=== PATIENT | male | born 1955 | race Caucasian/White ===

== ENCOUNTER 2016-11-02 21:21 | Observation (INO) | payer BC, MEDICARE ==
[~2016-11-02] VITALS: Ht 180.3 cm; Wt 181.4 kg
[2016-11-02 21:31] VITALS: BP 142/73; PULSE 101; RESP 18; TEMP 97.8; O2SAT 93
[2016-11-02 21:52] VITALS: BP 142/73; PULSE 101; RESP 18; TEMP 97.8; O2SAT 93
[2016-11-02] MEDS ORDERED: KETOROLAC TROMETHAMINE 30 MG/ML (IVP) VIAL IV PUSH ONE (22:30)
[2016-11-02] MEDS ORDERED: SODIUM CHLORIDE 0.9% FLUSH 10 ML FLUSH IVF PRN (22:30)
[2016-11-02] MEDS ORDERED: SODIUM CHLORID 0.9% 500 ML INJ 500 ML IV ONE (22:30)
[2016-11-02] MEDS ORDERED: HYDROmorphone HCL PF 1 MG/ML VIAL IV PUSH ONE (22:30)
[2016-11-02] MEDS ORDERED: ONDANSETRON HCL 4 MG/2 ML VIAL IV PUSH ONE (22:30)
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
[2016-11-02 22:38] LABS: BLOOD, URINE SMALL (NEG); GLUCOSE,URINE NEG (NEG); KETONE, URINE TRACE mg/dL (NEG); NITRITE,URINE NEG (NEG); PH, URINE 5.5 (5.0-8.5)
[2016-11-02 22:39] LABS: AUTOMATED NEUTROPHIL # 5.4 TH/MM3 (1.8-7.7); BASOPHIL # 0.3 TH/MM3 (0-0.2); BASOPHIL % 3.5 % (0.0-2.0); EOSINOPHIL # 0.1 TH/MM3 (0-0.4); EOSINOPHIL % 1.2 % (0.0-4.0); HEMATOCRIT 49.3 % (39.0-51.0); HEMO FLAGS DIFF FINAL; LYMPH % 18.6 % (9.0-44.0); LYMPHOCYTE # 1.5 TH/MM3 (1.0-4.8); MEAN CELL VOLUME 85.4 FL (80.0-100.0); MEAN CORPUSCULAR HEMOGLOBIN 28.3 PG (27.0-34.0); MEAN CORPUSCULAR HGB CONC 33.2 % (32.0-36.0); MONO % 7.2 % (0.0-8.0); NEUT % 69.5 % (16.0-70.0); PLATELET COUNT 175 TH/MM3 (150-450); RED BLOOD COUNT 5.78 MIL/MM3 (4.50-5.90); RED CELL DISTRIBUTION WIDTH 14.9 % (11.6-17.2); WHITE BLOOD COUNT 7.9 TH/MM3 (4.0-11.0)
[2016-11-02 22:43] LABS: URINE COLOR YELLOW (YELLW/STRAW)
[2016-11-02 22:44] LABS: COMMENT (UR) CULT NOT INDICATED; CULTURE IF INDICATED CULT NOT INDICATED; RBC, URINE 0-3 /hpf (0-3); SQUAMOUS EPITHELIAL CELL URINE 0-5 /hpf (0-5); WBC, URINE 0-2 /hpf (0-5)
[2016-11-02 22:46] LABS: CHLORIDE 96 MEQ/L (98-107); SODIUM (NA) 130 MEQ/L (136-145)
[2016-11-02 22:50] LABS: ANION GAP 10 MEQ/L (5-15); BICARBONATE 24.1 MEQ/L (21.0-32.0); BLOOD UREA NITROGEN 20 MG/DL (7-18)
[2016-11-02 22:53] LABS: ALT (GPT) 68 U/L (12-78); AST (GOT) 36 U/L (15-37); GLOMERULAR FILTRATION RATE 56 ML/MIN (>89)
[2016-11-02 22:54] LABS: TOTAL BILIRUBIN ADULT 0.6 MG/DL (0.2-1.0)
[2016-11-02 23:02] LABS: POTASSIUM 5.2 MEQ/L (3.5-5.1)
[2016-11-02 23:11] VITALS: RESP 18; O2SAT 94
[2016-11-02 23:18] LABS: ALKALINE PHOSPHATASE 71 U/L (45-117)
[2016-11-02] MEDS ORDERED: ASPI-110 PO (23:22)
[2016-11-02] MEDS ORDERED: ATOR20TA15 PO (23:22)
[2016-11-02] MEDS ORDERED: IPRASOL INH (23:22)
[2016-11-02] MEDS ORDERED: TEST-55 (23:22)
[2016-11-02] MEDS ORDERED: LOSA50TA PO (23:22)
[2016-11-02] MEDS ORDERED: MAGN400T24 (23:22)
[2016-11-02] MEDS ORDERED: ALBU6.7H INH (23:22)
[2016-11-02] MEDS ORDERED: MONT10TA4 PO (23:22)
[2016-11-02] MEDS ORDERED: HUMALOG SQ (23:22)
[2016-11-02] MEDS ORDERED: ALBI1INJ2 SQ (23:22)
[2016-11-02] MEDS ORDERED: OMEG300C5 (23:22)
[2016-11-02] MEDS ORDERED: EFFE150C PO (23:22)
[2016-11-02] MEDS ORDERED: FLUT1INH7 INH (23:22)
[2016-11-02] MEDS ORDERED: ALBU1.25 NEB (23:22)
[2016-11-02] MEDS ORDERED: AMLO5TAB2 PO (23:22)
[2016-11-02] MEDS ORDERED: INSULIN HUMAN REGULAR 1,000 UNITS/10 ML VIAL IV PUSH ONE (23:30)
[2016-11-02] MEDS ORDERED: SODIUM CHLOR 0.9% 1000 ML INJ 1,000 ML IV ONE (23:30)
--- NOTE | 2016-11-02 23:48 | RADRPT ---
EXAM DATE/TIME: 11/02/2016 23:19 [place] COMPARISON: No previous studies available for comparison. INDICATIONS : Lower back pain post fall. Numbness in left leg. RADIATION DOSE: 43.27 CTDIvol (mGy) ; Patient body habitus MEDICAL HISTORY : None SURGICAL HISTORY : None. ENCOUNTER: Initial ACUITY: 1 day PAIN SCALE: 10/10 LOCATION: Bilateral lower back TECHNIQUE: Volumetric scanning of the lumbar spine was performed. Multiplanar reconstructions in the sagittal, coronal and oblique axial planes were performed. Using automated exposure control and adjustment of the mA and/or kV according to patient size, radiation dose was kept as low as reasonably achievable t o obtain optimal diagnostic quality images. DICOM format image data is available electronically for review and comparison. FINDINGS: There is bilateral L5 spondylolysis with grade 1 anterolisthesis of L5 on S1 and severe degenerative disc disease at L5-S1 with prominent osteophytosis, vacuum disc phenomenon and disc space narrowing, endplate sclerosis. Moderate facet hypertrophic changes at L5-S1. There are mild multilevel osteophyt es present. There are no compression deformities. The pedicles appear short diffusely on a congenital basis. At L3-4 diffuse disc bulge is noted greatest centrally with mild canal stenosis and moderate facet hy pertrophy identified. There is felt to be severe bilateral foraminal stenosis. At L4-5-1 diffuse disc bulge greatest centrally with mild facet hypertrophy. Severe bilateral foraminal narrowing. CONCLUSION: 1. Degenerative changes without acute fracture. 2. L5 spondylolysis with spondylolisthesis. Martin Brasher MD on November 02, 2016 at 23:44 Board Certified Radiologist. This report was verified electronically.
[2016-11-03] VITALS (11 sets, daily range): BP systolic 135–195; BP diastolic 69–95; PULSE 64–104; RESP 18–20; TEMP 97.5–98.6; O2SAT 91–97
[2016-11-03] MEDS ORDERED: HYDROmorphone HCL PF 1 MG/ML VIAL IV PUSH ONE ×2 (00:30→05:00)
[2016-11-03] MEDS ORDERED: HYDROmorphone HCL PF 1 MG/ML VIAL IV PUSH PRN ×2 (00:45→08:45)
[2016-11-03] MEDS ORDERED: NALOXONE HCL 0.4 MG/ML AMP IV PRN (00:45)
[2016-11-03] MEDS ORDERED: SODIUM CHLORIDE 0.9% FLUSH 10 ML FLUSH IV FLUSH PRN (00:45)
[2016-11-03] MEDS ORDERED: DEXTROSE 50% IN WATER 50 ML VIAL(D50) IV PRN (01:00)
[2016-11-03] MEDS ORDERED: SODIUM CHLORIDE 0.9% FLUSH 10 ML FLUSH IVF PRN (01:00)
[2016-11-03] MEDS ORDERED: GLUCAGON 1 MG/ML VIAL OTHER PRN (01:00)
[2016-11-03] MEDS ORDERED: INSULIN HUMAN REGULAR 1,000 UNITS/10 ML VIAL IV PUSH ONE (02:00)
[2016-11-03] MEDS ORDERED: SODIUM CHLORID 0.9% 500 ML INJ 500 ML IV ONE (02:00)
[2016-11-03] MEDS ORDERED: ORPHENADRINE INJ 60 MG/2 ML AMP IM ONE (02:30)
[2016-11-03] MEDS ORDERED: HYDROmorphone HCL PF 2 MG/ML VIAL IV PUSH ONE (03:15)
[2016-11-03] MEDS ORDERED: DEXAMETHASONE SOD PHOS 4 MG/ML VIAL IV PUSH ONE (04:15)
[2016-11-03] MEDS ORDERED: RESP: ALBUTEROL 2.5 MG/IPRATROPIUM 0.5 MG NEB (PRN) NEB (05:15)
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
[2016-11-03] MEDS ORDERED: MEPERIDINE HCL 50 MG TAB PO PRN (06:45)
[2016-11-03] MEDS ORDERED: MEPERIDINE HCL 50 MG TAB PO ONE (06:45)
[2016-11-03] MEDS ORDERED: INSULIN ASPART SUPPLEMENTAL SCALE SQ SCH (07:00)
--- NOTE | 2016-11-03 07:49 | RADRPT ---
EXAM DATE/TIME: 11/03/2016 07:12 [facility] COMPARISON: No previous studies available for comparison. INDICATIONS : Trauma. MEDICAL HISTORY : Diabetes mellitus type 2. Hypertension. SURGICAL HISTORY : Cholecystectomy. Total knee replacement, right. Total knee replacement, left. Bilateral rotator cuff. ENCOUNTER: Initial ACUITY: 1 day PAIN SCORE: 4/10 LOCATION: back TECHNIQUE: Multiplanar multisequence MRI of the thoracic spine was performed. FINDINGS: VERTEBRA: Normal vertebral body height. Homogeneous marrow signal. ALIGNMENT: Normal. CORD: Normal position and configuration. T1-T2: Normal. T2-T3: The thecal sac has a normal diameter. No evidence of disc bulge or protrusion. T3-T4: The thecal sac has a normal diameter. No evidence of disc bulge or protrusion. T4-T5: The thecal sac has a normal diameter. No evidence of disc bulge or protrusion. T5-T6: The thecal sac has a normal diameter. No evidence of disc bulge or protrusion. T6-T7: The thecal sac has a normal diameter. No evidence of disc bulge or protrusion. T7-T8: The thecal sac has a normal diameter. No evidence of disc bulge or protrusion. T8-T9: The thecal sac has a normal diameter. No evidence of disc bulge or protrusion. Mild anterior margina l spurring T9-T10: The thecal sac has a normal diameter. No evidence of disc bulge or protrusion. T10-T11: The thecal sac has a normal diameter. No evidence of disc bulge or protrusion. T11-T12: The thecal sac has a normal diameter. No evidence of disc bulge or protrusion. T12-L1: The thecal sac has a normal diameter. No evidence of disc bulge or protrusion. CONCLUSION: No acute disease. No acute bony injury. Minimal anterior marginal spurring Gaurav Perez MD on November 03, 2016 at 7:45 Board Certified Radiologist. This report was verified electronically.
[2016-11-03] MEDS: RESP: ALBUTEROL 2.5 MG/IPRATROPIUM 0.5 MG NEB (SCH) NEB ×3 (08:18→19:21)
--- NOTE | 2016-11-03 08:26 | RADRPT ---
EXAM DATE/TIME: 11/03/2016 07:36 [facility] COMPARISON: No previous studies available for comparison. INDICATIONS : Trauma. MEDICAL HISTORY : Diabetes mellitus type 2. Hypertension. SURGICAL HISTORY : Cholecystectomy. Total knee replacement, right. Rotator cuff, left. Bilateral rotator cuff. ENCOUNTER: Initial ACUITY: 2 day PAIN SCORE: 6/10 LOCATION: low back TECHNIQUE: Multiplanar multisequence MRI of the lumbar spine was performed without contrast. FINDINGS: The most caudal appearing lumbar vertebra is numbered as L5. VERTEBRAE: A grade 1 anterolisthesis is noted at L5-S1. Bilateral L5 pars defects are noted. Lumbar alignment is otherwise well preserved. Bone marrow signal intensity is well preserved without evidence of bone ma rrow edema. There are no destructive changes. CONUS: Normal level and configuration. T12-L1: The thecal sac has a normal diameter. No evidence of disc bulge or protrusion. The neural foramina are patent bilaterally. L1-L2: The thecal sac has a normal diameter. No evidence of disc bulge or protrusion. The neural foramina are patent bilaterally. L2-L3: The thecal sac has a normal diameter. No evidence of disc bulge or protrusion. The neural foramina are patent bilaterally. L3-L4: The thecal sac has a normal diameter. No evidence of disc bulge or protrusion. The neural foramina are patent bilaterally. L4-L5: The thecal sac has a normal diameter. No evidence of disc bulge or protrusion. The neural foramina are patent bilaterally. L5-S1: Moderate degenerative disc disease with disc space narrowing is noted. There is broad-based posterior annular bulging with moderate bilateral foraminal encroachment. The L5 nerve roots are mildly compre ssed bilaterally. Significant anterior disc protrusion is identified. There is no evidence of spinal stenosis. CONCLUSION: 1. Grade 1 anterolisthesis at L5-S1 secondary to bilateral spondylolysis 2. Moderate degenerative disc disease at L5-S1 with posterior and posterolateral disc bulging 3. Moderate bilateral foraminal encroachment with nerve root compression at L5-S1 secondary to degene rative disc disease and spondylolisthesis. 4. No evidence of acute trauma. Shawn Veloz MD on November 03, 2016 at 8:18 Board Certified Radiologist. This report was verified electronically.
[2016-11-03] MEDS ORDERED: SODIUM CHLORIDE 0.9% FLUSH 10 ML FLUSH IV FLUSH SCH (09:00)
[2016-11-03] MEDS: INSULIN ASPART SUPPLEMENTAL SCALE SQ SCH ×4 (09:31→21:40)
[2016-11-03] MEDS: SODIUM CHLORIDE 0.9% FLUSH 10 ML FLUSH IV FLUSH SCH ×2 (10:46→21:33)
--- NOTE | 2016-11-03 12:45 | HHI.PR ---
Subjective Remarks Follow up on patient with lumbosacral pain s/p fall. Patient seen and examined today. Patient states pain is controlled at present. He has not been out of the bed. He is unable to sit up. He denies any bowel or bladder dysfunction. Denies any perineal anesthesia. He endorses left lower extremity pain and numbness which is chronic but has worsened since his fall. He denies any right lumbar radiculopathy. Neurosurgery consulted. Patient lives in [place] and is on vacation celebrating his anniversary. His flight home is Wednesday. He states his breathing has improved. He is unable to tolerate muscle relaxants. Objective Vitals Vital Signs Date Time Temp Pulse Resp B/P Pulse Ox O2 Delivery O2 Flow Rate FiO2 11/03/16 08:46 98.6 93 18 135/79 91 11/03/16 08:21 93 Nasal Cannula 2.00 11/03/16 05:48 97.5 92 20 155/75 93 11/03/16 04:21 18 11/03/16 02:33 89 18 148/72 93 Nasal Cannula 2 11/03/16 01:25 94 Nasal Cannula 2.00 11/03/16 00:59 18 11/03/16 00:16 98 18 149/69 94 Nasal Cannula 2 11/02/16 23:36 18 11/02/16 23:36 18 11/02/16 23:11 18 94 Room Air 2 11/02/16 22:19 97 18 96 Nasal Cannula 2 11/02/16 21:52 97.8 101 18 142/73 93 11/02/16 21:31 97.8 101 18 142/73 93 Room Air I/O 11/02/16 11/02/16 11/02/16 11/03/16 11/03/16 11/03/16 06:59 14:59 22:59 06:59 14:59 22:59 Intake Total 1000 ml Balance 1000 ml Intake IV Total 1000 ml Result Diagram: 11/02/16222911/02/162229 Imaging Last Impressions Thoracic Spine MRI 11/03/16 0000 Signed Impressions: Service Date/Time: Thursday, November 03, 2016 07:12 - CONCLUSION: No acute disease. No acute bony injury. Minimal anterior marginal spurring Gaurav Perez MD Lumbar Spine MRI 11/03/16 0000 Signed Impressions: Service Date/Time: Thursday, November 03, 2016 07:36 - CONCLUSION: 1. Grade 1 anterolisthesis at L5-S1 secondary to bilateral spondylolysis 2. Moderate degenerative disc disease at L5-S1 with posterior and posterolateral disc bulging 3. Moderate bilateral foraminal encroachment with nerve root compression at L5-S1 secondary to degenerative disc disease and spondylolisthesis. 4. No evidence of acute trauma. Shawn Veloz MD Lumbar Spine CT 11/02/16 0000 Signed Impressions: Service Date/Time: Wednesday, November 02, 2016 23:19 - CONCLUSION: 1. Degenerative changes without acute fracture. 2. L5 spondylolysis with spondylolisthesis. Martin Brasher MD Objective Remarks GENERAL: This is a well-nourished, well-developed patient, morbid obesity, in no acute distress. Awake and alert. SKIN: No rashes, ecchymoses or lesions. Warm and dry. HEAD: Atraumatic. Normocephalic. EYES: EOM. No scleral icterus. No injection or drainage. ENT: Nose without bleeding or purulent drainage. Airway patent. NECK: Trachea midline. Patient with short thick neck. CARDIOVASCULAR: Regular rate and rhythm without murmurs, gallops, or rubs. RESPIRATORY: Bilaterally equal air entry, mild expiratory wheezing, able to complete sentences. GASTROINTESTINAL: Abdomen soft, non-tender, nondistended. No guarding. MUSCULOSKELETAL: Extremities without clubbing or cyanosis. Trace BLE edema. Bilateral knee surgical scars, Bilateral LE limited range of motion due to severe pain from low back. Unable to test ROM in lumbar spine due to pain. (+)bilateral SLR. Decreased sensation on the left along the L5 distribution. Motor intact. NEUROLOGICAL: Awake and alert. Normal speech. Medications and IVs Current Medications Medications (Trade) Dose Ordered Sig/Kyleigh Route Start Time Stop Time Status Last Admin (NS Flush) 2 ml UNSCH PRN IVF 11/02/16 22:30 (NS Flush) 2 ml UNSCH PRN IV FLUSH 11/03/16 00:45 (NS Flush) 2 ml BID IV FLUSH 11/03/16 09:00 (Narcan Inj) 0.4 mg UNSCH PRN IV 11/03/16 00:45 (D50w (Vial) Inj) 50 ml UNSCH PRN IV 11/03/16 01:00 (Glucagon Inj) 1 mg UNSCH PRN OTHER 11/03/16 01:00 (Dilaudid Pf Inj) 0.5 mg Q4H PRN IV PUSH 11/03/16 08:45 (Demerol) 50 mg Q4H PRN PO 11/03/16 06:45 (NovoLOG SUPPLEMENTAL SCALE) 1 Q4HR SQ 11/03/16 08:00 11/03/16 09:31 A/P Problem List: (1) Intractable back pain ICD Code: M54.9 Status: Acute (2) Lumbar radiculopathy, acute ICD Code: M54.16 Status: Acute (3) Hyperglycemia due to type 2 diabetes mellitus ICD Code: E11.65 Status: Acute Assessment and Plan 61 yo male with h/o HTN, DM and asthma admitted with severe low back pain and left lumbar radiculopathy s/p fall. Status post fall Acute on chronic low back pain and left lumbar radiculopathy MRI Lumbar spine reviewed showing grade 1 anterolisthesis at L5-S1 secondary to bilateral spondylolysis, moderate degenerative disc disease L5-S1 with posterior posterior lateral disc bulging and moderate bilateral foraminal encroachment with nerve root compression at L5-S1 secondary to disc disease and spondylolisthesis MRI thoracic spine shows personally reviewed shows no acute disease and minimal anterior marginal spurring. Neurosurgery consulted. Will await their recommendations. Appreciate their assistance. Pain management as needed with Demerol 50mg by mouth q 4h and Dilaudid 0.5mg IV q4h as needed for breakthrough pain- patient unable to tolerate muscle relaxants PT eval/treatment K thermia pad Hypertension HLD Resume home dose of amlodipine 5mg daily Hold Cozaar for now due to hyperkalemia Resume home dose of aspirin Resume home dose of atorvastatin 20mg daily Monitor BP Asthma YURIY History of respiratory failure secondary to asthma exacerbation requiring intubation and ICU stay - 03/23/16 Continue with DuoNeb's Continue patient on nasal cannula to keep O2 sats above 92% Resume home dose of Singulair 10 mg daily Resume home Breo Monitor respiratory status CPAP for use at night Diabetes Hyperglycemia h/o DKA Feb 2016 Hyperglycemic at admission with a random glucose of 517 Continue Accu-Cheks Continue with sliding scale Levemir 5u BID Novolog 5U TIDAC Hyponatremia Repeat sodium ordered Hyperkalemia Slightly hemolyzed sample Repeat History of hepatitis Patient's unsure if it's hepatitis B or C Brought to be due to a blood transfusion in 1974 LFTs WNL standard precautions History of renal failure In February 2016 during patient's ICU stay Creatinine currently Monitor DVT prophylaxis Patient is on Lovenox Discussed with patient and Dr. Burks Attending Statement Patient continued to have pain. He stated that the IV medication only works for short period time. Patient stated that before this happened he has not been on any pain medication. He stated that he is not able to move much secondary to pain. Denied any lower extremity weakness. Gen NAD but does look uncomfortable with movement. Spine increased range of motion secondary to pain. 5/5 lower extremity strength. Positive straight leg raise Intractable pain Secondary to radiculopathy Uncontrolled diabetes Would recommend anti-inflammatory but patient's diabetes uncontrolled the 500s. Will need to avoid steroids. He also stated that he can't take any NSAIDs. So NSAIDs are contraindicated. Will use long acting pain medication Oramorph. Dilaudid when necessary. Prescribed Flexeril and lidocaine patch. Consult PT In terms of his blood sugars. Home regimen reviewed and not controlling his blood sugars. Will give Levemir 10 units twice a day and NovoLog 10 units. Continue with high-dose insulin sliding scale and adjust accordingly. We'll continue to monitor closely. Problem Qualifiers (1) Hyperglycemia due to type 2 diabetes mellitus: Qualified Code: E11.65 - Type 2 diabetes mellitus with hyperglycemia, with long -term current use of insulin Anna Perez Nov 03, 2016 12:45 Jenny Burks MD Nov 03, 2016 15:26
[2016-11-03] MEDS: amLODIPine BESYLATE 5 MG TAB PO SCH (13:22)
[2016-11-03] MEDS: VENLAFAXINE HCL XR 75 MG CAP PO SCH (13:23)
[2016-11-03] MEDS: ASPIRIN EC 81 MG TABEC PO SCH (13:23)
[2016-11-03] MEDS: FLUTICASONE 200 MCG/VILANTEROL 25 MCG INHALER INH SCH (14:01)
[2016-11-03 15:42] LABS: ANION GAP 13 MEQ/L (5-15); BICARBONATE 23.4 MEQ/L (21.0-32.0); BLOOD UREA NITROGEN 25 MG/DL (7-18); CHLORIDE 94 MEQ/L (98-107); GLOMERULAR FILTRATION RATE 41 ML/MIN (>89); POTASSIUM 5.2 MEQ/L (3.5-5.1); SODIUM (NA) 130 MEQ/L (136-145)
[2016-11-03] MEDS ORDERED: INSULIN ASPART 1,000 UNITS/10 ML VIAL SQ SCH ×2 (17:00)
[2016-11-03 17:13] LABS: HEMOGLOBIN A1b 2.3 %; HEMOGLOBIN Ao 57.8 %; HEMOGLOBIN LA1C 3.5 %; HEMOGLOBIN P3 4.3 %
[2016-11-03] MEDS: CYCLOBENZAPRINE HCL 10 MG TAB PO SCH ×2 (17:33→21:32)
[2016-11-03] MEDS: LIDOCAINE HCL 5% PATCH T-DERMAL SCH (17:34)
[2016-11-03] MEDS: MORPHINE SULFATE 15 MG CONTROLLED RELEASE TAB PO SCH ×2 (17:34→21:00)
[2016-11-03] MEDS ORDERED: MONTELUKAST SODIUM 10 MG TAB PO SCH (21:00)
[2016-11-03] MEDS ORDERED: INSULIN DETEMIR 100 UNITS/ML VIAL SQ SCH (21:00)
[2016-11-03] MEDS ORDERED: ATORVASTATIN 20 MG TAB PO SCH (21:00)
[2016-11-03] MEDS ORDERED: REMOVE OLD LIDOCAINE PATCH T-DERMAL SCH (21:00)
[2016-11-03] MEDS: HYDROmorphone HCL PF 1 MG/ML VIAL IV PUSH PRN (21:36)
[2016-11-03] MEDS: INSULIN DETEMIR 100 UNITS/ML VIAL SQ SCH (21:41)
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
[2016-11-04] VITALS (7 sets, daily range): BP systolic 148–190; BP diastolic 67–86; PULSE 64–83; RESP 14–18; TEMP 97.6–98.4; O2SAT 95–98
[2016-11-04] MEDS: INSULIN ASPART SUPPLEMENTAL SCALE SQ SCH ×4 (00:44→13:34)
[2016-11-04] MEDS: HYDROmorphone HCL PF 1 MG/ML VIAL IV PUSH PRN ×2 (03:44→08:37)
[2016-11-04] MEDS: CYCLOBENZAPRINE HCL 10 MG TAB PO SCH ×2 (06:00→12:47)
[2016-11-04] MEDS: ASPIRIN EC 81 MG TABEC PO SCH (07:26)
[2016-11-04] MEDS: VENLAFAXINE HCL XR 75 MG CAP PO SCH (07:26)
[2016-11-04] MEDS: amLODIPine BESYLATE 5 MG TAB PO SCH (07:26)
[2016-11-04] MEDS: MORPHINE SULFATE 15 MG CONTROLLED RELEASE TAB PO SCH (07:28)
[2016-11-04] MEDS: SODIUM CHLORIDE 0.9% FLUSH 10 ML FLUSH IV FLUSH SCH (07:29)
[2016-11-04] MEDS: FLUTICASONE 200 MCG/VILANTEROL 25 MCG INHALER INH SCH (07:29)
[2016-11-04] MEDS: LIDOCAINE HCL 5% PATCH T-DERMAL SCH (07:33)
[2016-11-04] MEDS: RESP: ALBUTEROL 2.5 MG/IPRATROPIUM 0.5 MG NEB (SCH) NEB ×2 (07:58→13:22)
[2016-11-04] MEDS: INSULIN ASPART 1,000 UNITS/10 ML VIAL SQ SCH ×2 (08:00→13:32)
[2016-11-04] MEDS: INSULIN DETEMIR 100 UNITS/ML VIAL SQ SCH (08:35)
[2016-11-04 08:46] LABS: BASOPHIL # 0.3 TH/MM3 (0-0.2); BASOPHIL % 3.1 % (0.0-2.0); HEMATOCRIT 48.8 % (39.0-51.0); HEMO FLAGS DIFF FINAL; LYMPH % 9.4 % (9.0-44.0); LYMPHOCYTE # 0.9 TH/MM3 (1.0-4.8); MEAN CELL VOLUME 87.3 FL (80.0-100.0); MEAN CORPUSCULAR HEMOGLOBIN 29.4 PG (27.0-34.0); MEAN CORPUSCULAR HGB CONC 33.7 % (32.0-36.0); MONO % 6.3 % (0.0-8.0); NEUT % 81.2 % (16.0-70.0); PLATELET COUNT 162 TH/MM3 (150-450); RED BLOOD COUNT 5.59 MIL/MM3 (4.50-5.90); WHITE BLOOD COUNT 9.8 TH/MM3 (4.0-11.0)
[2016-11-04 09:22] LABS: BICARBONATE 26.1 MEQ/L (21.0-32.0); POTASSIUM 4.5 MEQ/L (3.5-5.1)
[2016-11-04] MEDS ORDERED: ACETAMINOPHEN/HYDROcodone 325 MG/5 MG TAB PO PRN (11:45)
[2016-11-04] MEDS ORDERED: ACETAMINOPHEN/HYDROcodone 325 MG/10 MG TAB PO PRN (11:45)
[2016-11-04] MEDS ORDERED: amLODIPine BESYLATE 5 MG TAB PO ONE (12:00)
[2016-11-04] MEDS ORDERED: CYCL1TAB29 PO (12:01)
[2016-11-04] MEDS ORDERED: AMLO10TA2 PO (12:01)
[2016-11-04] MEDS ORDERED: LIDO5DIS5 T-DERMAL (12:01)
[2016-11-04] MEDS ORDERED: MORP1TAB24 PO (12:01)
[2016-11-04] MEDS ORDERED: HYDR-3516 PO (12:01)
[2016-11-04] MEDS ORDERED: WALKER WHEELS/F1 MIS (12:05)
[2016-11-04] MEDS ORDERED: WHEEMIS3 (12:05)
[2016-11-04] MEDS ORDERED: LOSARTAN 50 MG TAB PO SCH (12:15)
--- NOTE | 2016-11-04 12:58 | HHI.PR ---
Subjective Remarks f/u for intractable pain and uncontrolled diabetes. patient stated pain better controlled 08/05. He stated he was able to get up and walk a little today but it was painful. patient has sleep apnea and on cpap. he desats when laying down due to morbid obesity so was given oxygen. denied any SOB, CP, palpations, lightheadedness/ dizziness or any URI symptoms. patient is getting PRN IV dilaudid. He stated he wants to stop that and see how he does this afternoon. patient stated able to move legs more. Objective Vitals Vital Signs Date Time Temp Pulse Resp B/P Pulse Ox O2 Delivery O2 Flow Rate FiO2 11/04/16 12:13 98.1 83 14 148/67 97 11/04/16 09:22 98 Nasal Cannula 4.00 11/04/16 08:00 74 11/04/16 07:58 97 Nasal Cannula 3.00 11/04/16 07:12 97.6 76 18 184/86 98 11/04/16 06:04 98.4 64 18 190/81 95 11/04/16 00:32 98.4 67 18 161/75 97 11/04/16 00:05 76 11/03/16 21:15 98.4 64 18 195/95 97 11/03/16 20:04 96 11/03/16 19:23 Nasal Cannula 2.00 11/03/16 17:44 18 95 11/03/16 16:46 98.6 101 18 162/87 92 I/O 11/03/16 11/03/16 11/03/16 11/04/16 11/04/16 11/04/16 07:00 15:00 23:00 07:00 15:00 23:00 Intake Total 1000 ml Output Total 1800 ml Balance 1000 ml -1800 ml Intake IV Total 1000 ml Output Urine Total 1800 ml Result Diagram: 11/04/1670211/04/16702 Objective Remarks GENERAL: morbid obese in NAD CARDIOVASCULAR: Regular rate and rhythm without murmurs, gallops, or rubs. RESPIRATORY: Breath sounds equal bilaterally. No accessory muscle use. GASTROINTESTINAL: Abdomen soft, non-tender, nondistended. MUSCULOSKELETAL: No cyanosis, or edema. BACK: right leg full ROM but left leg + straight leg raise at 45 degrees with improvement. Medications and IVs Current Medications Sodium Chloride (NS Flush) 2 ml UNSCH PRN IVF FLUSH AFTER USING IV ACCESS; Start 11/02/16 at 22:30; Stop 11/03/16 at 16:14; Status DC Ketorolac Tromethamine 30 mg 30 mg ONCE ONCE IV PUSH Last administered on 22:39; Start 11/02/16 at 22:30; Stop 11/02/16 at 22:31; Status DC Sodium Chloride (NS 500 ml Inj) 500 ml @ 500 mls/hr BOLUS ONCE IV Last administered on 11/02/16 22:40; Start 11/02/16 at 22:30; Stop 11/02/16 at 23:29; Status DC Ondansetron HCl (Zofran Inj) 4 mg ONCE ONCE IV PUSH Last administered on 22:39; Start 11/02/16 at 22:30; Stop 11/02/16 at 22:31; Status DC Hydromorphone HCl (Dilaudid Pf Inj) 1 mg ONCE ONCE IV PUSH Last administered on 11/02/16 22:39; Start 11/02/16 at 22:30; Stop 11/02/16 at 22:31; Status DC Insulin Human Regular 10 units 10 units ONCE ONCE IV PUSH Last administered on 11/02/16 23:32; Start 11/02/16 at 23:30; Stop 11/02/16 at 23:31; Status DC Sodium Chloride (NS 1000 ml Inj) 1,000 ml @ 999 mls/hr BOLUS ONCE IV Last administered on 11/02/16 23:36; Start 11/02/16 at 23:30; Stop 11/03/16 at 00:30; Status DC Hydromorphone HCl (Dilaudid Pf Inj) 1 mg ONCE ONCE IV PUSH Last administered on 11/03/16 00:39; Start 11/03/16 at 00:30; Stop 11/03/16 at 00:32; Status DC Sodium Chloride (NS Flush) 2 ml UNSCH PRN IV FLUSH FLUSH AFTER USING IV ACCESS ; Start 11/03/16 at 00:45 Sodium Chloride (NS Flush) 2 ml BID IV FLUSH Last administered on 11/04/16 07: 29; Start 11/03/16 at 09:00 Naloxone HCl (Narcan Inj) 0.4 mg UNSCH PRN IV SEE LABEL COMMENTS; Start at 00:45 Hydromorphone HCl (Dilaudid Pf Inj) 1 mg Q4H PRN IV PUSH pain >5; Start at 00:45; Stop 11/03/16 at 06:45; Status DC Dextrose (D50w (Vial) Inj) 50 ml UNSCH PRN IV HYPOGLYCEMIA-SEE COMMENTS; Start 11/03/16 at 01:00 Glucagon (Glucagon Inj) 1 mg UNSCH PRN OTHER HYPOGLYCEMIA-SEE COMMENTS; Start 11/03/16 at 01:00 Insulin Aspart (NovoLOG SUPPLEMENTAL SCALE) 1 ACHS SLIDING SCALE SQ ; Start 11/03/16 at 07:00; Stop 11/03/16 at 07:29; Status DC Sodium Chloride (NS Flush) 2 ml BID IV FLUSH ; Start 11/03/16 at 09:00; Stop 11/03 at 09:00; Status DC Sodium Chloride (NS Flush) 2 ml UNSCH PRN IVF FLUSH AFTER USING IV ACCESS; Start 11/03/16 at 01:00; Stop 11/03/16 at 01:00; Status DC Insulin Human Regular 8 units 8 units ONCE ONCE IV PUSH Last administered on 02:25; Start 11/03/16 at 02:00; Stop 11/03/16 at 02:01; Status DC Sodium Chloride (NS 500 ml Inj) 500 ml @ 500 mls/hr BOLUS ONCE IV Last administered on 11/03/16 02:24; Start 11/03/16 at 02:00; Stop 11/03/16 at 02:59; Status DC Orphenadrine Citrate (Norflex Inj) 60 mg ONCE ONCE IM Last administered on 11/03 02:28; Start 11/03/16 at 02:30; Stop 11/03/16 at 02:31; Status DC Hydromorphone HCl (Dilaudid Pf Inj) 2 mg ONCE ONCE IV PUSH Last administered on 11/03/16 03:30; Start 11/03/16 at 03:15; Stop 11/03/16 at 03:16; Status DC Dexamethasone Sodium Phosphate (Decadron Inj) 8 mg ONCE ONCE IV PUSH Last administered on 11/03/16 04:26; Start 11/03/16 at 04:15; Stop 11/03/16 at 04:16; Status DC Hydromorphone HCl (Dilaudid Pf Inj) 1 mg ONCE ONCE IV PUSH Last administered on 11/03/16 05:04; Start 11/03/16 at 05:00; Stop 11/03/16 at 05:01; Status DC Albuterol/ Ipratropium (Duoneb Neb) 1 ampule Q6HR WHILE AWAKE NEB NEB Last administered on 11/04/16 07:58; Start 11/03/16 at 08:00 Albuterol/ Ipratropium (Duoneb Neb) 1 ampule Q2HR NEB PRN NEB wheezing; Start 11/03/16 at 05:15 Meperidine HCl (Demerol) 50 mg ONCE ONCE PO Last administered on 11/03/16 09: 52; Start 11/03/16 at 06:45; Stop 11/03/16 at 06:47; Status DC Hydromorphone HCl (Dilaudid Pf Inj) 0.5 mg Q4H PRN IV PUSH breakthrough pain ; Start 11/03/16 at 08:45; Stop 11/03/16 at 16:16; Status DC Meperidine HCl (Demerol) 50 mg Q4H PRN PO pain >5 Last administered on 13:23; Start 11/03/16 at 06:45; Stop 11/03/16 at 15:23; Status DC Insulin Aspart (NovoLOG SUPPLEMENTAL SCALE) 1 Q4HR SQ Last administered on 04:48; Start 11/03/16 at 08:00 Amlodipine Besylate (Norvasc) 5 mg DAILY PO Last administered on 11/04/16 07:26 ; Start 11/03/16 at 12:45; Stop 11/04/16 at 11:58; Status DC Aspirin (Ecotrin Ec) 81 mg DAILY PO Last administered on 11/04/16 07:26; Start 11/03/16 at 12:45 Atorvastatin Calcium (Lipitor) 20 mg HS PO Last administered on 11/03/16 21:32 ; Start 11/03/16 at 21:00 Fluticasone/ Vilanterol (Breo Ellipta 200-25 Inh) 1 puff DAILY INH Last administered on 11/04/16 07:29; Start 11/03/16 at 12:45 Montelukast Sodium (Singulair) 10 mg HS PO Last administered on 11/03/16 21:32 ; Start 11/03/16 at 21:00 Venlafaxine HCl (Effexor Xr) 150 mg DAILY PO Last administered on 11/04/16 07: 26; Start 11/03/16 at 12:45 Insulin Aspart (NovoLOG INJ) 5 units TIDAC SQ ; Start 11/03/16 at 17:00; Stop 11/03/16 at 17:00; Status DC Insulin Detemir (Levemir Inj) 5 units Q12HR SQ ; Start 11/03/16 at 21:00; Stop at 21:00; Status DC Morphine Sulfate (Oramorph Sr) 15 mg Q12HR PO Last administered on 11/04/16 07: 28; Start 11/03/16 at 15:30 Lidocaine HCl (Lidoderm 5% Patch.12 Hr) 1 patch DAILY T-DERMAL Last administered on 11/04/16 07:33; Start 11/03/16 at 15:30 Cyclobenzaprine HCl (Flexeril) 10 mg Q8HR PO Last administered on 11/04/16 12: 47; Start 11/03/16 at 15:30 Insulin Aspart (NovoLOG INJ) 10 units TIDAC SQ Last administered on 11/03/16 17 :37; Start 11/03/16 at 17:00; Stop 11/03/16 at 18:38; Status DC Insulin Detemir (Levemir Inj) 10 units Q12HR SQ Last administered on 11/04/16 08:35; Start 11/03/16 at 21:00 Hydromorphone HCl (Dilaudid Pf Inj) 1 mg Q4H PRN IV PUSH breakthrough pain 1- 10 Last administered on 11/04/16 08:37; Start 11/03/16 at 15:30; Stop 11/04/16 at 11:47; Status DC Miscellaneous Information 1 Q24H T-DERMAL Last administered on 11/03/16 21:00; Start 11/03/16 at 21:00 Insulin Aspart (NovoLOG INJ) 20 units TIDAC SQ ; Start 11/04/16 at 08:00 Acetaminophen/ Hydrocodone Bitart ([place] 5-325 Mg) 1 tab Q4H PRN PO breatkthrough pain 1-6; Start 11/04/16 at 11:45 Acetaminophen/ Hydrocodone Bitart ([place] 10-325 Mg) 1 tab Q4H PRN PO breakthrough pain 7-10; Start 11/04/16 at 11:45 Amlodipine Besylate (Norvasc) 5 mg ONCE ONCE PO Last administered on 11/04/16 12:46; Start 11/04/16 at 12:00; Stop 11/04/16 at 12:22; Status DC Amlodipine Besylate (Norvasc) 10 mg DAILY PO ; Start 11/05/16 at 09:00 Losartan Potassium (Cozaar) 50 mg DAILY PO Last administered on 11/04/16 12:46 ; Start 11/04/16 at 12:15 A/P Problem List: (1) Intractable back pain ICD Code: M54.9 Status: Acute (2) Lumbar radiculopathy, acute ICD Code: M54.16 Status: Acute (3) Hyperglycemia due to type 2 diabetes mellitus ICD Code: E11.65 Status: Acute Assessment and Plan 61 yo male with h/o HTN, DM and asthma admitted with severe low back pain and left lumbar radiculopathy s/p fall. Status post fall Acute on chronic low back pain and left lumbar radiculopathy MRI Lumbar spine reviewed showing grade 1 anterolisthesis at L5-S1 secondary to bilateral spondylolysis, moderate degenerative disc disease L5-S1 with posterior posterior lateral disc bulging and moderate bilateral foraminal encroachment with nerve root compression at L5-S1 secondary to disc disease and spondylolisthesis MRI thoracic spine shows personally reviewed shows no acute disease and minimal anterior marginal spurring. Neurosurgery consulted and they agreed with conservative management. symptoms improving with treatment. patient is on oramorph, lidoderm patch and fexeril. will d/w diladid and give oral norco for breakthrough pain. Hypertension HLD uncontrolled. increase amlodipine to 10 mg PO daily. will resume his cozaar. continue statin. Asthma YURIY History of respiratory failure secondary to asthma exacerbation requiring intubation and ICU stay - 03/23/16 Continue with DuoNeb's Continue patient on nasal cannula to keep O2 sats above 92% continue Singulair 10 mg daily, Breo Monitor respiratory status CPAP for use at night Position hypoxia with laying down -due to restrictive from obesity -encourage weight loss. -use cpap machine while sleeping. Diabetes Hyperglycemia h/o DKA Feb 2016 improved with current regimen. BS now in 300s. medication held because not on formulary. patient stated BS controlled with his regimen on home. continues with current regimen and adjust as needed. Hyponatremia improve. asymptomatic. Hyperkalemia Slightly hemolyzed sample resolved. History of hepatitis Patient's unsure if it's hepatitis B or C Brought to be due to a blood transfusion in 1974 LFTs WNL standard precautions History of renal failure In February 2016 during patient's ICU stay Creatinine currently stable. good UOP Monitor DVT prophylaxis Patient is on Lovenox Discharge Planning If pain controlled on oral medication can be d/c later today. Problem Qualifiers (1) Hyperglycemia due to type 2 diabetes mellitus: Qualified Code: E11.65 - Type 2 diabetes mellitus with hyperglycemia, with long -term current use of insulin Jenny Burks MD Nov 04, 2016 12:58 Jenny Burks MD Nov 04, 2016 12:58
--- NOTE | 2016-11-04 15:43 | HHI.DCPOC ---
Discharge Care Plan Diagnosis: (1) Lumbar radiculopathy, acute (2) Obesity, morbid, BMI 50 or higher (3) Intractable back pain (4) Hyperglycemia due to type 2 diabetes mellitus Goals to Promote Your Health * To prevent worsening of your condition and complications * To maintain your health at the optimal level Directions to Meet Your Goals Take your medications as prescribed Follow your dietary instruction Follow activity as directed Keep your appointments as scheduled Take your immunizations and boosters as scheduled If your symptoms worsen call your PCP, if no PCP go to Urgent Care Center or Emergency Room Smoking is Dangerous to Your Health. Avoid second hand smoke Call the 24-hour hour crisis hotline for domestic abuse at Jenny Burks MD Nov 04, 2016 15:43
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
== END 2016-11-04 18:27 | disposition home or self-care (01) ==
LOC: PHED 21:21 → PHEDA 11-03 00:50 → INTOOBSV 11-03 00:50 → NEPFCDU 11-03 05:30
PROVIDERS: ADMIT Family Medicine; ATTEND Family Medicine
DX: M51.17 Intervertebral disc disorders with radiculopathy, lumbosacral region (principal); M54.5 Low back pain; J45.901 Unspecified asthma with (acute) exacerbation; E11.65 Type 2 diabetes mellitus with hyperglycemia; E66.01 Morbid (severe) obesity due to excess calories; Z68.43 Body mass index [BMI] 50.0-59.9, adult
CPT/HCPCS: 72131; 72146; 72148; 80048; 80053; 81001; 82948; 83036; 85025; 94640; 94664; 96361; 96372; 96374; 96375; 96376; 97162; 99285; G0378; J1100; J1170; J1815; J1885; J2360; J2405; J7030; J7040